=== PATIENT | male | born 1960 | race Caucasian/White ===

== ENCOUNTER 2017-04-14 12:49 | Emergency (ER) | payer OTHER, MEDICAID ==
[2017-04-14 12:55] VITALS: BP 155/88; BMI 31.1
[2017-04-14] MEDS ORDERED: DUONEB 0.5 MG/3 MG NEB ONE (13:54)
[2017-04-14] MEDS ORDERED: SOLU-Medrol 40 MG VIAL IM ONE (13:55)
--- NOTE | 2017-04-14 13:59 | DR.GENAD ---
HPI - PCP Primary Care Physician: ROSALINDA - HPI Comment HPI Comment: SOB - Complaint/Symptoms Chief Complaint:: "For about a week now I have been coughing and I feel like I can't breath. It just seems like I am really congested. I have been spitting up some yellow flem." - Nurses notes reviewed Nurses Notes Review: Yes - Source History Provided: Patient - Mode of Arrival Mode of Arrival: Ambulatory - Timing Onset of Chief Complaint: 04/07/17 Came on: Gradually - Duration Duration: Days (2) - Modifying Factors Worsens:: Sitting position - Associated Signs and Symptoms Associated Signs and Symptoms: productive cough PMH - PMH Past Medical History: Yes Past Medical History: COPD, Hypertension Past Surgical History: Yes Past Surgical History Comment: Exploratory laparotomy - Family History History of Family Medical Conditions: No - Social History Does patient currently use any type of tobacco product: Yes Have you used tobacco products in the last 12 months: Yes Type of Tobacco Use: Cigarettes Does any household member use tobacco: Yes Alcohol Use: None Do you use any recreational Drugs:: No Lives With: Family Lives Where: Home - infectious screening In the last 2 months have you had wt loss of >10#?: NO Have you had fever, night sweats or hemotysis?: No Have you traveled outside the country in the last 6 months?: No Isolation: Standard ROS - Review of Systems Constitutional: No Symptoms Reported Eyes: No Symptoms Reported ENTM: No Symptoms Reported Respiratoy: Productive Cough, Short of Breath Cardiovascular: No Symptoms Reported Gastrointestinal/Abdominal: No Symptoms Reported Genitourinary: No Symptoms Reported Neurological: No Symptoms Reported Musculoskeletal: No Symptoms Reported Integumentary: No Symptoms Reported Hematologic/Lymphatic: No Symptoms Reported Endocrine: No Symptoms Reported Psychiatric: No Symptoms Reported PE - Vital Signs Vitals: Temperature 98.7 F Pulse Rate 89 Respiratory Rate 15 Blood Pressure 155/88 O2 Sat by Pulse Oximetry 95 - General Limitations: No Limitations General Appearance: Alert, In No Apparent Distress - Head Head Exam: Normal Inspection - Eyes Eye exam: Normal Appearance - ENT ENT Exam: Normal Exam - Neck Neck Exam: Normal Inspection - Chest Chest Inspection: Normal Inspection, Symmetric Chest Wall Rise - Respiratory Respiratory Exam: Bilateral Wheezing (mild) - Cardiovascular Cardiovascular Exam: Regular Rate, Normal Rhythm - Abdominal Exam Abdominal Exam: Normal Inspection, Normal Bowel Sounds, Soft - Extremities Extremities Exam: Normal Inspection, Full ROM - Back Back Exam: Normal Inspection - Neurologic Neurological Exam: Alert, Oriented X3, CN II-XII Intact - Psychiatric Psychiatric Exam: Normal Affect, Normal Mood - Skin Skin Exam: Warm, Dry, Intact, Normal Color Course - Reevaluation 1st: Improved 2nd: Improved ROR - Labs Reviewed Result Diagrams: 04/14/17 14:05 04/14/17 14:05 Laboratory: WBC 10.8 X10^3/uL (3.6-10.0) H 04/14/17 14:05 RBC 5.19 X10^6/uL (4.7-6.0) 04/14/17 14:05 Hgb 15.4 g/dL (13.5-18.0) 04/14/17 14:05 Hct 43.8 % (42.0-54.0) 04/14/17 14:05 MCV 84.4 fL (80.0-100.0) 04/14/17 14:05 MCH 29.7 pg (27.0-34.0) 04/14/17 14:05 MCHC 35.2 g/dL (33.0-35.0) H 04/14/17 14:05 RDW 13.3 % (11.6-16.5) 04/14/17 14:05 Plt Count 217 X10^3/uL (150.0-450.0) 04/14/17 14:05 MPV 8.3 fL (7.4-11.0) 04/14/17 14:05 Neut % 64.5 % (42.0-75.0) 04/14/17 14:05 Lymph % 25.5 % (21.0-51.0) 04/14/17 14:05 [place] % 9.5 % (0.0-13.0) 04/14/17 14:05 Eos % 0.2 % (0.9-2.9) L 04/14/17 14:05 Baso % 0.3 % (0.2-1.0) 04/14/17 14:05 Neut # 7.0 x10^3/uL (2.2-4.8) H 04/14/17 14:05 Lymph # 2.7 X10^3/uL (1.3-2.9) 04/14/17 14:05 [place] # 1.0 x10^3/uL (0.3-0.8) H 04/14/17 14:05 Eos # 0.0 x10^3/uL (0.0-0.2) 04/14/17 14:05 Baso # 0.0 X10^3/uL (0.0-0.1) 04/14/17 14:05 Absolute Nucleated RBC 0.1 /100WBC 04/14/17 14:05 Sodium 129 mmol/L (136-145) L 04/14/17 14:05 Corrected Sodium 129 mmol/L (136-145) L 04/14/17 14:05 Potassium 3.2 mmol/L (3.5-5.1) L 04/14/17 14:05 Chloride 101 mmol/L (98-107) 04/14/17 14:05 Carbon Dioxide 28.3 mmol/L (21-32) 04/14/17 14:05 BUN 8 mg/dL (7-18) 04/14/17 14:05 Creatinine 0.59 mg/dL (0.70-1.30) L 04/14/17 14:05 Est GFR (MDRD) Af Amer > 60 (>60) 04/14/17 14:05 Est GFR (MDRD) Non-Af > 60 (>60) 04/14/17 14:05 Glucose 115 mg/dL (65-99) H 04/14/17 14:05 Calcium 8.6 mg/dL (8.5-10.1) 04/14/17 14:05 - XRAY XRAY Interpreted by: Radiologist (COPD without acute abnormality) - Diagnosis Discharge Problem: Dyspnea, COPD (chronic obstructive pulmonary disease), Hyponatremia, Hypokalemia - Discharge Plan Condition: Stable - Follow ups/Referrals Follow ups/Referrals: NFD,None [Primary Care Provider] - 3 days - Instructions
[2017-04-14 14:11] LABS: LYMPHOCYTES % (AUTO) 25.5 % (21.0-51.0)
[2017-04-14] MEDS ORDERED: DUONEB 0.5 MG/3 MG ONE (14:15)
[2017-04-14 14:28] LABS: BLOOD UREA NITROGEN 8 mg/dL (7-18); CALCIUM 8.6 mg/dL (8.5-10.1); CARBON DIOXIDE 28.3 mmol/L (21-32); CHLORIDE 101 mmol/L (98-107); COR NA(FOR HYPERGLY) 129 mmol/L (136-145); CREATININE 0.59 mg/dL (0.70-1.30); SODIUM 129 mmol/L (136-145); eGFR BLACK RACES > 60 (>60); eGFR NON BLACK RACES > 60 (>60)
[2017-04-14] MEDS ORDERED: SOLU-Medrol 40 MG VIAL ONE (14:30)
[2017-04-14 14:31] LABS: BASOPHILS % (AUTO) 0.3 % (0.2-1.0); EOSINOPHILS % (AUTO) 0.2 % (0.9-2.9); HEMATOCRIT 43.8 % (42.0-54.0); HEMOGLOBIN 15.4 g/dL (13.5-18.0); LYMPHOCYTES # (AUTO) 2.7 X10^3/uL (1.3-2.9); MEAN CORPUSCULAR HEMOGLOBIN 29.7 pg (27.0-34.0); MEAN CORPUSCULAR HGB CONC 35.2 g/dL (33.0-35.0); MEAN CORPUSCULAR VOLUME 84.4 fL (80.0-100.0); MEAN PLATELET VOLUME 8.3 fL (7.4-11.0); MONOCYTES % (AUTO) 9.5 % (0.0-13.0); NEUTROPHILS % (AUTO) 64.5 % (42.0-75.0); PLATELET COUNT 217 X10^3/uL (150.0-450.0); RED BLOOD COUNT 5.19 X10^6/uL (4.7-6.0); RED CELL DISTRIBUTION WIDTH 13.3 % (11.6-16.5); WHITE BLOOD COUNT 10.8 X10^3/uL (3.6-10.0)
--- NOTE | 2017-04-14 14:33 | RAD ---
HISTORY: Hypertension, COPD Study: Two-view chest Comparison: No priors Findings: Trachea is midline. The heart size is normal. There is aortic uncoiling. There is hyperinflation of t he lungs with increased interstitial markings, compatible with COPD. No infiltrate, CHF, pleural flui d or pneumothorax is seen. There is multilevel thoracic spondylosis. An acute abnormality is not iden tified. IMPRESSION: COPD without acute abnormality Reported By:
[2017-04-14] MEDS ORDERED: NS 1000 ML 1,000 ML IV ONE (14:55)
[2017-04-14] MEDS ORDERED: NS 1000 ML 1,000 ML ONE (15:06)
[2017-04-14] MEDS ORDERED: K-DUR TAB 20 MEQ PO ONE (15:07)
[2017-04-15] MEDS ORDERED: K-DUR TAB 20 MEQ PO ONE (15:00)
== END 2017-04-14 16:30 | disposition home or self-care (01) ==
LOC: ER 12:59
DX: J44.9 Chronic obstructive pulmonary disease, unspecified (principal); R06.00 Dyspnea, unspecified; E87.1 Hypo-osmolality and hyponatremia; E87.6 Hypokalemia
CPT/HCPCS: 36415; 71020; 80048; 85025; 94640; 96365; 96372; 99283; A4222; J2920; J7620